=== PATIENT | male | born 1985 | race African-American/Black ===

== ENCOUNTER 2019-08-08 02:39 | Emergency (ER) | payer OTHER ==
--- NOTE | 2019-08-08 03:16 | PDOC ---
Attending Attestation - Resident Resident Name: Tyrone Alicea - ED Attending Attestation I have performed the following: I have examined & evaluated the patient, The case was reviewed & discussed with the resident, I agree w/resident's findings & plan - HPI HPI: 08/08/19 05:44 Pt was having sex with . Right testicle has been hurting a couple days, but no swelling and no penile discharge. During sex, base of penis pain x 2 on and off, he figured the penis may have bent a certain way. Their 1 yo started crying, the stopped mid sex to attend to the kid. Pt's erection appeaerd normal, but both pt and had blood on themselves. Both assumed it was vaginal bleeding. However, pt noted that he had a couple drops of blood coming out of urethra. Pt took shower and notes small amounts of blood coming out. Pt has no other complaints. - Physicial Exam PE: 08/08/19 05:50 Penis appears normal; blood at meatus. Testicles are normal. No tenderness of the testicle or the inguinal canal. Pt has no suprapubic tenderness; no abdominal pain. No penile discharge. Pt has open inguinal rings, but no hernia. - Medical Decision Making 08/08/19 05:52 We called ; they want us to pass a friend cath; if cath passes, they want us to pobserve pt and ultimately send him home when bleeding stops. Pt was hydrated; friend cath attempted; however, it wouldn't pass beyond 2 inches , and pt began to bleed heavily; currently pinching his penis to staunch the bleed. 08/08/19 06:54 Pt will be signed out to the day ER docs. PT will be seen by . They will examine pt;s urethral integrity 08/08/19 06:55 All labs are still pending.
--- NOTE | 2019-08-08 03:21 | PDOC ---
History of Present Illness - General Stated Complaint: BLEEDING PENIS Time Seen by Provider: 08/08/19 02:50 History Source: Patient Exam Limitations: No Limitations - History of Present Illness Initial Comments: 08/08/19 03:16 34 yo male no sig pmh presents to the ED for penile bleeding after intercourse. Pt states he was having intercourse with his 1 hour ago, had sudden onset pain at the base of his penis, later noted a significant amount of blood coming from his urethra. Pt states he is still bleeding from the urethra. Pt denies feeling or hearing a pop, penile deformity, penile swelling. Past History - Past Medical History Allergies/Adverse Reactions: Allergies Allergy/AdvReac Type Severity Reaction Status Date / Time No Known Allergies Allergy Verified 08/08/19 03:26 Home Medications: Ambulatory Orders Amoxicillin/Potassium Clav [Augmentin 875-125 Tablet] 1 each PO BID #14 tablet 08/08/19 Review of Systems - Review of Systems Constitutional: No: Chills, Fever Respiratory: No: Shortness of Breath Cardiac (ROS): No: Chest Pain ABD/GI: No: Constipated, Diarrhea, Nausea, Vomiting : Yes: Discharge (bloody), Pain Musculoskeletal: No: Back Pain Neurological: No: Headache *Physical Exam - Physical Exam General Appearance: Yes: Nourished, Appropriately Dressed. No: Apparent Distress HEENT: positive: EOMI Neck: positive: Supple. negative: Carotid bruit Respiratory/Chest: positive: Lungs Clear, Normal Breath Sounds. negative: Respiratory Distress, Accessory Muscle Use, Crackles, Rales, Rhonchi, Stridor, Wheezing Cardiovascular: positive: Regular Rhythm, Regular Rate, S1, S2. negative: Edema , JVD, Murmur Vascular Pulses: Dorsalis-Pedis (R): 4+, Doralis-Pedis (L): 4+ Gastrointestinal/Abdominal: positive: Flat, Soft. negative: Pulsatile Mass, Protuberent, Distended, Guarding, Rebound, Tenderness Male Genitalia: positive: other (bloody discharge from the urethral meatus. No deformity or swelling noted). negative: testicular tenderness, inguinal hernia Musculoskeletal: negative: CVA Tenderness Extremity: positive: Normal Capillary Refill, Normal Inspection, Normal Range of Motion Integumentary: positive: Normal Color, Dry, Warm Neurologic: positive: Fully Oriented, Alert, Normal Mood/Affect ED Treatment Course - LABORATORY CBC & Chemistry Diagram: 08/08/19 06:15 08/08/19 06:15 Medical Decision Making - Medical Decision Making 08/08/19 03:21 34 yo male no sig pmh presents to the ED for penile bleeding after intercourse. Pt states he was having intercourse with his 1 hour ago, had sudden onset pain at the base of his penis, later noted a significant amount of blood coming from his urethra. Pt states he is still bleeding from the urethra. Pt denies feeling or hearing a pop, penile deformity, penile swelling. vitals WNL Discussed case immediately with urology, Dr. Gusman, states a straight cath should be attempted to see if it can be passed and then observe. It is unlikely a penile fracture since there is no sig swelling or localized pain/deformity to the penis fluids given to pt 08/08/19 05:17 Attempted straight cath by nurse, approx 1.5 inches into the urethra, resistance met and a significant amount of blood continues to come out of his urethra. Dr. Gusman called immediately, states either he or his partner, Dr. Tello will be in within the next 2 hours 08/08/19 06:26 Dr. Gusman will do a flex sig of the bladder in the ED within the next 20 min. Pre op labs ordered 08/08/19 07:22 Flx sig done in the ED, Dr. Gusman states he saw a urethral tear. Placed 16 catheter, states he should have it in until his office visit next . Recommends augmentin and 1-2 days of pain control with percocet and NSAIDs afterwards pt aware and understands DC instructions Discharge - Discharge Information Problems reviewed: Yes Clinical Impression/Diagnosis: Urethral tear Condition: Stable Disposition: HOME - Admission No - Additional Discharge Information Prescriptions: Amoxicillin/Potassium Clav [Augmentin 875-125 Tablet] 1 each PO BID #14 tablet - Follow up/Referral Referrals: Rickie John MD [Primary Care Provider] - Baljit Gusman MD., [Staff Physician] - - Patient Discharge Instructions Patient Printed Discharge Instructions: How to Care for Your Friend Catheter -- Male Additional Instructions: Please call Dr. Gusman office and see him . Have the friend catheter in place until you see him in office. Use NSAID medication over the counter for pain control. Use the antibiotic Augmentin 2 times a day for the next 1 week. Return to the ER for new or concerning symptoms including but not limited to: severe pain, high fevers, no urine production in over 6 hours. Thank you - Post Discharge Activity
[2019-08-08] MEDS ORDERED: SODIUM CHLORIDE 1,000 ML IV STA (03:25)
[2019-08-08 03:26] VITALS: BP 138/83; PULSE 86; TEMP 98.7; BMI 25.3
[2019-08-08] MEDS ORDERED: morphine CARPU-JECT 4 MG/1 ML DISP.SYRIN IVPUSH ONE (05:08)
[2019-08-08] MEDS ORDERED: morphine SULFATE 4 MG/ML VIAL ONE (05:17)
[2019-08-08 06:33] LABS: BASO % 1.1 % (0-2.0); EOS % 0.9 % (0-4.5); HEMATOCRIT 44.6 % (35.4-49); HEMOGLOBIN 15.2 GM/dL (11.7-16.9); LYMPH % 42.9 % (8-40); MCH 29.5 pg (25.7-33.7); MEAN CELL VOLUME 86.8 fl (80-96); MEAN PLT VOLUME 8.2 fl (7.5-11.1); NEUT % 46.1 % (42.8-82.8); PLATELET COUNT 195 K/MM3 (134-434); RBC 5.14 M/mm3 (4.00-5.60); WHITE BLOOD COUNT 6.6 K/mm3 (4.0-10.0)
[2019-08-08] MEDS ORDERED: LIDOCAINE HCL 2% JELLY 10 ML CARTRIDGE UR ONE (06:52)
[2019-08-08] MEDS ORDERED: LIDOCAINE HCL 2% JELLY 10 ML CARTRIDGE ONE (06:52)
[2019-08-08 06:58] LABS: ALBUMIN 3.8 g/dl (3.4-5.0); BILIRUBIN,TOTAL 0.4 mg/dL (0.2-1); BLOOD UREA NITROGEN 14.9 mg/dL (7-18); CALCIUM 8.6 mg/dL (8.5-10.1); CREATININE 1.1 mg/dL (0.55-1.3); POTASSIUM 3.9 mmol/L (3.5-5.1); TOT PROT 7.6 g/dl (6.4-8.2)
[2019-08-08] MEDS ORDERED: morphine CARPU-JECT 2 MG/1 ML DISP.SYRIN IVPUSH ONE (07:04)
[2019-08-08 07:09] LABS: INR 1.03 (0.83-1.09); PROTHROMBIN TIME (PATIENT) 12.1 SEC (9.7-13.0)
[2019-08-08] MEDS ORDERED: MORPHINE SULFATE 2 MG/ML VIAL ONE (07:09)
--- NOTE | 2019-08-08 07:15 | CONSULT ---
Consult - text type - Consultation Consultation Note: Called for pt w blood per meatus s/p sexual intercourse no penile pain ER unable to pass catheter penile corpora intact Flexible cystoscopy performed and mid shaft 5 mm laceration noted Bladder and more proximal urethra intact Friend catheter placed 16 Fr left to SD Plan for analgesics and D/C w friend to Sd abx follow in office
== END 2019-08-08 08:11 | disposition home or self-care (01) ==
LOC: JER 02:39
PROC: 0DJD8ZZ Inspection of Lower Intestinal Tract, Via Natural or Artificial Opening Endoscopic (ICD-10-PCS; principal; 2019-08-08)
PROC: 3E033NZ Introduction of Analgesics, Hypnotics, Sedatives into Peripheral Vein, Percutaneous Approach (ICD-10-PCS; 2019-08-08)
PROC: 3E0337Z Introduction of Electrolytic and Water Balance Substance into Peripheral Vein, Percutaneous Approach (ICD-10-PCS; 2019-08-08)
DX: S37.33XA Laceration of urethra, initial encounter (principal)
CPT/HCPCS: 36415; 80053; 85025; 85610; 85730; 86850; 86900; 86901; 99282-25; J7030